=== PATIENT | female | born 1960 | race Caucasian/White ===

== ENCOUNTER 2019-01-02 14:50 | Outpatient (RCR) | payer MEDICARE ==
[2019-01-02 12:51] LABS: LDL CHOLESTEROL 74 mg/dl
--- NOTE | 2019-01-04 15:50 | RADIOLOGY IMAGING REPORT ---
FACILITY: [facility] - [place] PATIENT NAME: AFRICA VIEYRA : [id number] MR: [id number] V: [id number] EXAM DATE: ORDERING PHYSICIAN: SHELLI SLATER TECHNOLOGIST: Mary Lou Gong PROCEDURE:BILATERAL DIAGNOSTIC DIGITAL MAMMOGRAM WITH CAD ASSISTED INTERPRETATION & 3D TOMOSYNTHESIS COMPARISON:None. INDICATIONS:RIGHT BREAST PAIN, THE PATIENT GIVES A HISTORY OF PRIOR RIGHT BREAST CANCER. FINDINGS: The patient gives a history of Right lumpectomy and prior radiation therapy. The Right breast appears smaller than the Left. There is an area of architectural distortion in the 12 o'clock position of the Right breast at the junctional middle and anterior 1/3's. There are several adjacent surgical clips. There are areas of fat necrosis in the operative site. There are scattered round calcifications seen throughout the breasts. There is a small grouping of round calcifications in the 9 o'clock position of the Right breast. Macrocalcifications are also identified in the superior and inferior portions of the Right breast on the Right MLO view. A grouping of relatively course round calcifications are identified in the approximate 6 o'clock position of the Left breast. Sense there are no prior mammograms available for comparison a 6 month follow-up bilateral diagnostic mammogram is recommended unless clinical findings warrant more immediate attention. DIAGNOSTIC CATEGORY 3--PROBABLY BENIGN FINDING. RECOMMENDATIONS: SIX MONTH FOLLOW-UP DIAGNOSTIC MAMMOGRAM: BILATERAL BREASTS. IMPRESSION: BIRADS 3: Probably benign finding. A 6 month follow-up bilateral diagnostic mammogram is recommended as described above unless clinical findings warrant more immediate attention. Dictated by: Michelle Knight M.D. on 01/04/2019 at 14:47 Transcribed by: ILA on 01/04/2019 at 15:27 Approved by: Michelle Knight M.D. on 01/04/2019 at 15:49 [facility]
== END 2019-01-04 18:00 | disposition home or self-care (01) ==
LOC: LAB 14:50 → EDSTATUS 14:50 → MAMO 01-04 18:00
PROVIDERS: ATTEND Nurse Practitioner
DX: Z00.00 Encounter for general adult medical examination without abnormal findings (principal); I10 Essential (primary) hypertension; N64.4 Mastodynia; R92.1 Mammographic calcification found on diagnostic imaging of breast
CPT/HCPCS: 36415; 77062; 77066; 82040; 82247; 82310; 82374; 82435; 82465; 82565; 82947; 83036; 83718; 84075; 84132; 84155; 84295; 84443; 84450; 84460; 84478; 84520

== ENCOUNTER → 2019-02-21 | Outpatient (CLI) | payer MEDICARE | LOC: LAB 08:21 | PROVIDERS: ATTEND Nurse Practitioner | DX: Z00.00 Encounter for general adult medical examination without abnormal findings (principal); N95.1 Menopausal and female climacteric states; I10 Essential (primary) hypertension; R73.9 Hyperglycemia, unspecified | CPT/HCPCS: 36415; 82040; 82247; 82248; 84075; 84155; 84450; 84460 ==